=== PATIENT | male | born 1940 | race Caucasian/White ===

== ENCOUNTER 2018-02-25 21:43 | Emergency (ER) | payer MEDICARE ==
--- NOTE | 2018-02-25 22:10 | ERPHSYRPT ---
- History of Present Illness Time Seen by Provider: 02/25/18 22:09 Source: patient, family Exam Limitations: no limitations Physician History: 77 y/o white male presents with not feeling well and feverish at home for 3 weeks. pt has had a cough, had a cat scratch. pt denies flank pain and denies dysuria. pt denies cp, soa and abd pain. he has no n/v/d. pt is on coumadin. 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) Associated Symptoms: cough, headache, No abdominal pain, No chest pain, No confusion, No diaphoresis, No nausea/vomiting, No rash, No rhinorrhea, No shortness of breath, No sore throat, No syncope, No weakness Allergies/Adverse Reactions: sodium phosphate,dibasic [From OsmoPrep] Allergy (Intermediate, Verified 00:35) sodium phosphate,monobasic monohydr [From OsmoPrep] Allergy (Intermediate, Verified 02/26/18 00:35) codeine [Codeine] Adverse Reaction (Severe, Verified 02/26/18 00:35) Vomiting meperidine HCl [From Demerol] Adverse Reaction (Severe, Verified 02/26/18 00:35) Vomiting Home Medications: Zolpidem Tartrate 10 mg [Ambien 10 MG] 10 mg PO HS PRN 12/15/11 [History] Warfarin Sodium [Coumadin] 1 mg PO UD 03/19/12 [History] Hydrocodone Bit/Acetaminophen [[place] 7.5-325 Tablet] 1 each PO Q6HPRN PRN [History] Hx Tetanus, Diphtheria Vaccination/Date Given: Yes Hx Influenza Vaccination/Date Given: Yes (2009) Hx Pneumococcal Vaccination/Date Given: No - Review of Systems Constitutional: Fever, No Chills, No Weakness Eyes: No Symptoms Ears, Nose, & Throat: No Symptoms Respiratory: Cough, No Dyspnea, No Stridor, No Wheezing Cardiac: No Symptoms, No Chest Pain, No Palpitations, No Syncope Abdominal/Gastrointestinal: No No Symptoms, No Abdominal Pain, No Nausea, No Vomiting Genitourinary Symptoms: No Symptoms, No Dysuria, No Frequency, No Hematuria Musculoskeletal: No Symptoms, No Arthralgias, No Back Pain, No Neck Pain, No Injury Skin: No No Symptoms Neurological: Headache, No Dizziness Psychological: No Symptoms Endocrine: No Symptoms Hematologic/Lymphatic: No Symptoms Immunological/Allergic: No Symptoms All Other Systems: Reviewed and Negative - Past Medical History Pertinent Past Medical History: Yes Neurological History: No Pertinent History ENT History: No Pertinent History Cardiac History: No Pertinent History Respiratory History: No Pertinent History Endocrine Medical History: Diabetes Type II Musculoskeletal History: Arthritis GI Medical History: Esophageal Disorder History: No Pertinent History, Kidney Cancer Psycho-Social History: No Pertinent History Male Reproductive Disorders: No Pertinent History Other Medical History: hx blood in stool - Past Surgical History Past Surgical History: Yes Neuro Surgical History: No Pertinent History Cardiac: No Pertinent History Respiratory: No Pertinent History Gastrointestinal: Appendectomy Genitourinary: No Pertinent History Musculoskeletal: No Pertinent History Male Surgical History: No Pertinent History Other Surgical History: t&a - Social History Smoking Status: Former smoker How long have you smoked: 50yrs ago Exposure to second hand smoke: No Drug Use: none Patient Lives Alone: No - Nursing Vital Signs Nursing Vital Signs: Initial Vital Signs Temperature 100.5 F 02/25/18 21:44 Pulse Rate 76 02/25/18 21:44 Respiratory Rate 18 02/25/18 21:44 Blood Pressure 143/70 02/25/18 21:44 O2 Sat by Pulse Oximetry 93 L 02/25/18 21:44 Pain Scale Pain Intensity 10 - Physical Exam General Appearance: no apparent distress, alert, anxiety Eye Exam: PERRL/EOMI, eyes nml inspection ENT Exam: normal ENT inspection, TMs normal, pharynx normal Neck Exam: normal inspection, non-tender, supple, full range of motion, trachea midline, No lymphadenopathy (R) Respiratory Exam: normal breath sounds, lungs clear, No chest non-tender, No no respiratory distress, No no accessory muscle use, No rhonchi, No stridor, No wheezing Cardiovascular/Chest Exam: normal heart sounds, regular rate/rhythm Gastrointestinal/Abdominal Exam: soft, non tender, no distention, no mass, no guarding, no ecchymosis, no organomegaly, normal bowel sounds, No guarding, No rebound, No tenderness Rectal Exam: not done Extremity Exam: non-tender, normal range of motion, normal inspection Neurologic Exam: alert, oriented x 3, 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, 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, normal mood/affect Skin Exam: normal color, warm, dry, other (right above knee old cat scratch) Lymphatic: No adenopathy SpO2 Interpretation: normal - Course Nursing assessment & vital signs reviewed: Yes Ordered Tests: Active Orders 24 hr Category Date Time Status CHEST 1 VIEW (PORTABLE) Stat Exams 02/25/18 22:38 Taken BLOOD CULTURE Stat Lab 02/25/18 22:50 Received CBC W DIFF Stat Lab 02/25/18 22:50 Completed CMP Stat Lab 02/25/18 22:50 Completed Medication Summary Discontinued Medications Generic Name Dose Route Start Last Admin Trade Name Freq PRN Reason Stop Dose Admin Acetaminophen 650 mg 02/26/18 00:41 02/26/18 00:45 Tylenol 325 Mg PO 02/26/18 00:42 650 mg STAT STA Administration Acetaminophen Confirm 02/26/18 00:43 Tylenol 325 Mg Administered 02/26/18 00:44 Dose 650 mg .ROUTE .STK-MED ONE Doxycycline Hyclate 100 mg 02/26/18 00:45 02/26/18 00:49 Vibramycin 100 Mg PO 02/26/18 00:46 100 mg STAT ONE Administration Doxycycline Hyclate Confirm 02/26/18 00:47 Vibramycin 100 Mg Administered 02/26/18 00:48 Dose 100 mg .ROUTE .STK-MED ONE Sodium Chloride 1,000 mls @ 999 mls/hr 02/25/18 22:37 02/25/18 23:00 Sodium Chloride 0.9% 1000 Ml IV 02/25/18 23:37 999 mls/hr .Q1H1M STA Administration Sodium Chloride Confirm 02/25/18 22:49 Sodium Chloride 0.9% 1000 Ml Administered 02/25/18 22:50 Dose 1,000 mls @ ud .ROUTE .STK-MED ONE Lab/Rad Data: Laboratory Result Diagrams 02/25/18 22:50 02/25/18 22:50 Laboratory Results 02/25/18 02/25/18 Range/Units 22:50 22:50 WBC 3.7 L (4.0-10.5) K/mm3 RBC 4.22 (4.1-5.6) M/mm3 Hgb 13.5 (12.5-18.0) gm/dl Hct 40.4 L (42-50) % MCV 95.7 (78-100) fl MCH 32.0 (26-32) pg MCHC 33.4 (32-36) g/dl RDW 13.4 (11.5-14.0) % Plt Count 98 L (150-450) K/mm3 MPV 10.1 H (6-9.5) fl Gran % 47.8 (36.0-66.0) % Eos # (Auto) 0.12 (0-0.5) Absolute Lymphs (auto) 1.36 (1.0-4.6) Absolute Monos (auto) 0.42 (0.0-1.3) Lymphocytes % 36.6 (24.0-44.0) % Monocytes % 11.3 (0.0-12.0) % Eosinophils % 3.2 (0.00-5.0) % Basophils % 1.1 (0.0-0.4) % Absolute Granulocytes 1.78 (1.4-6.9) Basophils # 0.04 (0-0.4) Sodium 139 (137-145) mmol/L Potassium 3.8 (3.5-5.1) mmol/L Chloride 107 (98-107) mmol/L Carbon Dioxide 23 (22-30) mmol/L Anion Gap 13.8 (5-15) MEQ/L BUN 16 (9-20) mg/dL Creatinine 1.04 (0.66-1.25) mg/dL Estimated GFR > 60.0 ML/MIN Glucose 120 H (74-106) mg/dL Calcium 8.7 (8.4-10.2) mg/dL Total Bilirubin 0.40 (0.2-1.3) mg/dL AST 76 H (17-59) U/L ALT 81 H (0-50) U/L Alkaline Phosphatase 143 H (38-126) U/L Serum Total Protein 7.0 (6.3-8.2) g/dL Albumin 4.1 (3.5-5.0) g/dL cxr- no acute process - Progress Progress: unchanged, re-examined Progress Note: 02/26/18 00:55 pt and family stated pt cannot take hydrocodone for cough but he is on it. pt cannot take ibuprofen because of pt on coumadin. will give rx for doxycyline to cover bronchitis and cat scratch site to right leg. pt to take otc robitussin for cough Counseled pt/family regarding: lab results, diagnosis, need for follow-up, rad results - Departure Time of Disposition: 00:57 Departure Disposition: Home Clinical Impression: Fever, Cough, Cat scratch, Leukopenia, Thrombocytopenia Condition: Stable Critical Care Time: No Referrals: EMELI SINGH [Primary Care Provider] - Additional Instructions: keep cat scratch site clean with soap and water. follow up with primary doctor for further evaluation of low white blood cells and low platelet counts. Prescriptions: Doxycycline Hyclate 100 mg [Vibramycin 100 MG] 100 mg PO BID #14 tab
[2018-02-25] MEDS ORDERED: Sodium Chloride 0.9% 1000 ML 1,000 ML ONE (22:49)
[2018-02-25] MEDS: Sodium Chloride 0.9% 1000 ML 1,000 ML IV STA (23:00)
[2018-02-25 23:07] LABS: BASOPHIL % 1.1 % (0.0-0.4); Basophil (Absolute #) 0.04 (0-0.4); Eosinophil % 3.2 % (0.00-5.0); Eosinophil (Absolute #) 0.12 (0-0.5); Granulocyte Absolute (ANC) 1.78 (1.4-6.9); Granulocytes % 47.8 % (36.0-66.0); Hematocrit 40.4 % (42-50); Hemoglobin 13.5 gm/dl (12.5-18.0); Lymphocyte (Absolute #) 1.36 (1.0-4.6); Lymphocytes % 36.6 % (24.0-44.0); Mean Cell Volume 95.7 fl (78-100); Mean Corpuscular Hgb Concent. 33.4 g/dl (32-36); Mean Platelet Volume 10.1 fl (6-9.5); Monocyte (Absolute #) 0.42 (0.0-1.3); Monocytes % 11.3 % (0.0-12.0); Platelet Count 98 K/mm3 (150-450); Red Blood Count 4.22 M/mm3 (4.1-5.6); Red Cell Distribution Width 13.4 % (11.5-14.0); White Blood Count 3.7 K/mm3 (4.0-10.5)
[2018-02-25 23:24] LABS: ALBUMIN 4.1 g/dL (3.5-5.0); ALKALINE PHOSPHATASE 143 U/L (38-126); ANION GAP 13.8 MEQ/L (5-15); BLOOD UREA NITROGEN 16 mg/dL (9-20); CHLORIDE 107 mmol/L (98-107); Calcium 8.7 mg/dL (8.4-10.2); Carbon Dioxide 23 mmol/L (22-30); Creatinine 1 1.04 mg/dL (0.66-1.25); Glucose 120 mg/dL (74-106); Potassium 3.8 mmol/L (3.5-5.1); SGOT/AST 76 U/L (17-59); SGPT/ALT 81 U/L (0-50); SODIUM 139 mmol/L (137-145)
[2018-02-26] MEDS ORDERED: TYLENOL 325 MG ONE (00:43)
[2018-02-26] MEDS: TYLENOL 325 MG PO STA (00:45)
[2018-02-26] MEDS ORDERED: Vibramycin 100 MG ONE (00:47)
[2018-02-26] MEDS: Vibramycin 100 MG PO ONE (00:49)
[2018-02-26] MEDS: Robitussin 100 MG/5 ML PO ONE (01:21)
[2018-02-26 01:30] VITALS: BP 128/61; PULSE 64; O2SAT 93
--- NOTE | 2018-02-26 09:06 | XRAY ---
Indication: Chest pain, cough, and fever. Comparison: July 04, 2017. Portable chest unchanged again demonstrating normal heart and lungs with left base subsegmental atelectasis/scarring. Bony thorax intact with mild degenerative changes. No new/acute findings.
== END 2018-02-26 01:27 | disposition home or self-care (01) ==
LOC: ED 21:43
DX: R50.9 Fever, unspecified (principal); R05 Cough; W55.03XA Scratched by cat, initial encounter; D72.819 Decreased white blood cell count, unspecified; D69.6 Thrombocytopenia, unspecified; J40 Bronchitis, not specified as acute or chronic; R51 Headache; Z79.01 Long term (current) use of anticoagulants; Z79.899 Other long term (current) drug therapy; E11.9 Type 2 diabetes mellitus without complications; M19.90 Unspecified osteoarthritis, unspecified site; Z85.528 Personal history of other malignant neoplasm of kidney
CPT/HCPCS: 36415; 71045; 80053; 85025; 87040; 96360; 99284; A9270-GY

== ENCOUNTER 2018-03-24 11:01 | Emergency (ER) | payer MEDICARE ==
[2018-03-24] MEDS ORDERED: BACIGUENT PACKET (12:46)
[2018-03-24] MEDS ORDERED: XYLOCAINE 1% HCL 20 ML MDV (12:46)
[2018-03-24] MEDS ORDERED: Adacel Vial IM (12:46)
[2018-03-24] MEDS: Adacel Vial IM (12:51)
[2018-03-24] MEDS: XYLOCAINE 1% HCL 20 ML MDV IJ (12:53)
[2018-03-24] MEDS: BACIGUENT PACKET TP (12:53)
== END 2018-03-24 12:54 | disposition home or self-care (01) ==
LOC: ED 11:01
CPT/HCPCS: 90471; 90715; 96372

== ENCOUNTER 2019-09-18 22:42 | Emergency (ER) | payer MEDICARE ==
--- NOTE | 2019-09-18 22:45 | ERPHSYRPT ---
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 He was lifting and moving it on his own when he recalls straining his right lower lateral ribs. Today, the pain was worsening throughout the day. It is very localized. Patient denies anterior chest pain. He denies shortness of breath. Patient states that he using concerned about either a broken rib or possibly pneumonia. He states the pain is worse with a cough or deep breathing. He has no abdominal pain. Patient states that he has had Percocet in the past without any problems. Timing/Duration: today, worse Quality: sharpness, stabbing Abdominal Pain Onset Location: other (Right lateral lower ribs) Pain Radiation: no radiation Severity of Pain-Max: moderate Severity of Pain-Current: moderate Modifying Factors: Improves With: coughing, movement (Worsens), rest (Improves) Associated Symptoms: denies symptoms Previous symptoms: no prior history Allergies/Adverse Reactions: doxycycline Allergy (Intermediate, Verified 09/18/19 23:05) sodium phosphate,dibasic [From OsmoPrep] Allergy (Intermediate, Verified 23:05) sodium phosphate,monobasic monohydr [From OsmoPrep] Allergy (Intermediate, Verified 09/18/19 23:05) codeine [Codeine] Adverse Reaction (Severe, Verified 09/18/19 23:05) Vomiting meperidine HCl [From Demerol] Adverse Reaction (Severe, Verified 09/18/19 23:05) Vomiting Home Medications: Glipizide [Glipizide ER] 7.5 mg PO DAILY 03/24/18 [History] Tamsulosin HCl 0.4 mg PO DAILY 03/24/18 [History] Cyanocobalamin (Vitamin B-12) [Vitamin B-12] 1,000 mcg PO DAILY 09/18/19 [ History] Ezetimibe 10 mg [Zetia 10 MG] 10 mg PO HS 09/18/19 [History] Famotidine 20 mg [Pepcid 20 MG] 20 mg PO BID 09/18/19 [History] Losartan Potassium [Cozaar] 25 mg PO DAILY 09/18/19 [History] Hx Tetanus, Diphtheria Vaccination/Date Given: No (unsure) Hx Influenza Vaccination/Date Given: Yes (2009) Hx Pneumococcal Vaccination/Date Given: No Travel Risk - International Travel Have you traveled outside of the country in past 3 weeks: No Have you or anyone close to you been diagnosed with or: No Do your reside in a community with a known COVID-19 case?: Yes If Yes where:: [facility] - Coronavirus Screening Has patient experienced Coronavirus symptoms: No - Review of Systems Constitutional: No Symptoms Eyes: No Symptoms Ears, Nose, & Throat: No Symptoms Respiratory: No Symptoms Cardiac: No Symptoms Abdominal/Gastrointestinal: No Symptoms Genitourinary Symptoms: No Symptoms Musculoskeletal: Other (Right posterior lateral rib pain right rib margin pain) Skin: No Symptoms Neurological: No Symptoms Psychological: No Symptoms Endocrine: No Symptoms Hematologic/Lymphatic: No Symptoms Immunological/Allergic: No Symptoms All Other Systems: Reviewed and Negative - Past Medical History Pertinent Past Medical History: Yes Neurological History: No Pertinent History ENT History: No Pertinent History Cardiac History: No Pertinent History Respiratory History: No Pertinent History Endocrine Medical History: Diabetes Type II Musculoskeletal History: Arthritis GI Medical History: Esophageal Disorder History: No Pertinent History, Kidney Cancer Psycho-Social History: No Pertinent History Male Reproductive Disorders: No Pertinent History Other Medical History: hx blood in stool - Past Surgical History Past Surgical History: Yes Neuro Surgical History: No Pertinent History Cardiac: No Pertinent History Respiratory: No Pertinent History Gastrointestinal: Appendectomy Genitourinary: No Pertinent History Musculoskeletal: No Pertinent History Male Surgical History: No Pertinent History Other Surgical History: t&a - Social History Smoking Status: Former smoker How long have you smoked: 50yrs ago Exposure to second hand smoke: No Drug Use: none Patient Lives Alone: No - Nursing Vital Signs Nursing Vital Signs: Initial Vital Signs Temperature 98.2 F 09/18/19 22:53 Pain Scale Pain Intensity 3 - Physical Exam General Appearance: no apparent distress, alert, anxiety Eye Exam: PERRL/EOMI, eyes nml inspection Ears, Nose, Throat Exam: normal ENT inspection, moist mucous membranes Neck Exam: normal inspection, non-tender, supple Respiratory Exam: normal breath sounds, chest tenderness (Right posterior lateral and lower anterior rib margin pain worse with deep breath and palpation. 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 Skin Exam: normal color Lymphatic Exam: No adenopathy SpO2 Interpretation: normal O2 Delivery: Room Air - Course Nursing assessment & vital signs reviewed: Yes Ordered Tests: Active Orders 24 hr Category Date Time Status CHEST 2 VIEWS (PA AND LAT) Stat Exams 09/18/19 23:19 Taken Medication Summary Discontinued Medications Generic Name Dose Route Start Last Admin Trade Name Freq PRN Reason Stop Dose Admin Cyclobenzaprine HCl 10 mg 09/19/19 00:01 Cyclobenzaprine 10 Mg PO 09/19/19 00:02 STAT ONE Oxycodone/Acetaminophen 1 tab 09/19/19 00:00 Percocet Tablet 5/325mg PO 09/19/19 00:01 STAT STA Prednisone 20 mg 09/19/19 00:00 Deltasone 20 Mg PO 09/19/19 00:01 STAT ONE - Progress Progress: improved Progress Note: 09/19/19 00:14 We did contact the patient's daughter and she states that she does not recall whether or not this patient has had Percocet in the past. His reaction to codeine in the past was nausea and vomiting. We will provide him with Zofran ODT tonight as well as a prescription of Zofran to be used with his Percocet pain medicine. Chest x-ray was read by radiology. There is no evidence of any rib fractures. There is no pneumonia is present. On the lateral view there was evidence of a very small pleural effusion. There is mild bibasilar atelectasis. Again, no mention of pneumonia on the radiology report. I do not see evidence of an infiltrate on the x-ray of his chest Counseled pt/family regarding: diagnosis, need for follow-up, rad results - Departure Departure Disposition: Home Clinical Impression: Rib pain on right side Condition: Stable Critical Care Time: No Referrals: EMELI SINGH [Primary Care Provider] - Prescriptions: Ondansetron ODT 4 MG [Zofran Odt 4 mg] 4 mg PO Q6H PRN PRN #10 tab.rapdis PRN Reason: Vomiting Oxycodone HCl/Acetaminophen [Percocet 5-325 mg Tablet] 1 each PO Q8H PRN PRN #6 tablet MDD 3 PRN Reason: Pain Cyclobenzaprine HCl 10 mg [Cyclobenzaprine 10 MG] 10 mg PO TID #10 tablet Prednisone 10 mg [Deltasone 10 mg] 10 mg PO TID #12 tablet
[2019-09-19] MEDS ORDERED: PERCOCET TABLET 5/325MG PO STA
[2019-09-19] MEDS ORDERED: DELTASONE 20 MG PO ONE
[2019-09-19] MEDS ORDERED: Cyclobenzaprine 10 MG PO ONE (00:01)
[2019-09-19] MEDS ORDERED: Cyclobenzaprine 10 MG ONE (00:16)
[2019-09-19] MEDS ORDERED: PERCOCET TABLET 5/325MG ONE (00:16)
[2019-09-19] MEDS ORDERED: ZOFRAN ODT 4 MG ONE (00:16)
[2019-09-19] MEDS ORDERED: DELTASONE 20 MG ONE (00:16)
[2019-09-19] MEDS ORDERED: ZOFRAN ODT 4 MG PO ONE (00:20)
[2019-09-19 00:39] VITALS: BP 140/80; PULSE 66; O2SAT 96
--- NOTE | 2019-09-19 08:27 | XRAY ---
Indication: Right rib pain. No known injury. Comparison: February 25, 2018. PA/lateral chest demonstrates new minimal right base infiltrate/atelectasis and tiny effusion with stable left base fibrosis/scarring. Remaining heart and lungs unremarkable. Bony thorax intact again with mild osteopenia and degenerative changes. Comment: Preliminary interpretation was made by [facility]. No critical discrepancy.
== END 2019-09-19 00:47 | disposition home or self-care (01) ==
LOC: ED 22:42
DX: R07.81 Pleurodynia (principal); Z79.899 Other long term (current) drug therapy; X50.0XXA Overexertion from strenuous movement or load, initial encounter; Y93.9 Activity, unspecified; Y92.89 Other specified places as the place of occurrence of the external cause
CPT/HCPCS: 71046; 99284; Q0162; A9270-GY

== ENCOUNTER 2023-11-25 22:02 | Emergency (ER) | payer MEDICARE ==
[2023-11-25 22:25] VITALS: RESP 18; TEMP 97.6
--- NOTE | 2023-11-25 22:34 | ERPHSYRPT ---
- History of Present Illness Time Seen by Provider: 11/25/23 22:33 Source: patient Exam Limitations: no limitations Patient Subjective Stated Complaint: pt states he has had a headache and intermittent profuse sweating since . states he has had no energy and some shortness of breath with exertion Triage Nursing Assessment: pt alert and oriented, answers questions approp. pt ambulates into room with slow limping gait noted. respirations nonlabored with lungs cta bilat. skin warm and dry at this time. heart rate 62 sinus rhythm with pvc's on monitor Physician History: The patient presents with a chief complaint of excessive sweating, particularly at night, to the point of soaking his pillow and clothes. This has been accompanied by a persistent headache over the past three days. The patient denies any associated body aches, chills, or fever. He also denies any new muscle aches, but does have a history of chronic back and hip pain. The patient's oxygen saturation has reportedly dropped from the 90s to the high 80s, which has caused some concern. He reports feeling tired and short of breath, particularly after walking short distances. However, he denies any chest pain. The patient has been less active over the past two days due to these symptoms. The patient occasionally experiences a cough, but denies any congestion. He has not been around anyone who has been sick recently. He also denies any gastrointestinal symptoms such as nausea, vomiting, or diarrhea. The patient denies any swelling or abdominal pain. The primary concerns remain the severe sweating and persistent headache. Timing/Duration: day(s) (3) Severity: moderate Modifying Factors: Worsens With: movement Associated Symptoms: shortness of breath, diaphoresis, cough, chills, headaches, loss of appetite, malaise, weakness, No nausea, No vomiting, No abdominal pain, No heartburn, No fever Allergies/Adverse Reactions: bisacodyl [From Dulcolax (bisacodyl)] Allergy (Intermediate, Verified 11/25/23 2 2:38) Hives doxycycline Allergy (Intermediate, Verified 11/25/23 22:26) sodium phosphate,dibasic [From OsmoPrep] Allergy (Intermediate, Verified 11/25/23 22:26) Hives sodium phosphate,monobasic monohydr [From OsmoPrep] Allergy (Intermediate, Verified 11/25/23 22:26) codeine [Codeine] Adverse Reaction (Severe, Verified 11/25/23 22:26) Vomiting meperidine HCl [From Demerol] Adverse Reaction (Severe, Verified 11/25/23 22:26) Vomiting Home Medications: Tamsulosin HCl 0.4 mg PO HS 03/24/18 [History] glipiZIDE [Glipizide ER] 10 mg PO DAILY 03/24/18 [History] Cyanocobalamin (Vitamin B-12) [Vitamin B-12] 1,000 mcg PO DAILY 09/18/19 [History] Ezetimibe 10 mg [Zetia 10 MG] 10 mg PO HS 09/18/19 [History] Losartan Potassium [Cozaar] 50 mg PO DAILY 09/18/19 [History] Losartan Potassium 50 mg [Cozaar 50 MG] 25 mg PO HS 11/25/23 [History] Omeprazole 40 mg PO DAILY 11/25/23 [History] Hx Tetanus, Diphtheria Vaccination/Date Given: No (unsure) Hx Influenza Vaccination/Date Given: No Hx Pneumococcal Vaccination/Date Given: Yes Immunizations Up to Date: No Travel Risk - International Travel Have you traveled outside of the country in past 3 weeks: No - Emerging Infectious Disease Are you exhibiting symptoms associated with any current EIDs: No - Review of Systems All Other Systems: Reviewed and Negative - Past Medical History Pertinent Past Medical History: Yes Neurological History: No Pertinent History ENT History: No Pertinent History Cardiac History: Hypertension Respiratory History: No Pertinent History Endocrine Medical History: Diabetes Type II Musculoskeletal History: Osteoarthritis GI Medical History: Esophageal Disorder History: No Pertinent History Psycho-Social History: No Pertinent History Male Reproductive Disorders: Prostate Problems Other Medical History: hx blood in stool - Past Surgical History Past Surgical History: Yes Neuro Surgical History: No Pertinent History Cardiac: No Pertinent History Respiratory: No Pertinent History Gastrointestinal: Appendectomy, Cholecystectomy Genitourinary: No Pertinent History Musculoskeletal: No Pertinent History Male Surgical History: No Pertinent History Other Surgical History: t&a - Social History Smoking Status: Former smoker How long have you smoked: 50yrs ago Exposure to second hand smoke: No Drug Use: none Patient Lives Alone: No - Social Determinants of Health Will the patient participate in the screening: Declined to provide - Nursing Vital Signs Nursing Vital Signs: Initial Vital Signs Temperature 97.6 F 11/25/23 22:06 Pulse Rate 72 11/25/23 22:06 Respiratory Rate 18 11/25/23 22:06 Blood Pressure 136/66 11/25/23 22:06 O2 Sat by Pulse Oximetry 94 L 11/25/23 22:06 Pain Scale Pain Intensity 0 - Physical Exam General Appearance: no apparent distress Eye Exam: PERRL/EOMI, eyes nml inspection Ears, Nose, Throat Exam: normal ENT inspection, TMs normal, pharynx normal Neck Exam: normal inspection, non-tender, supple, full range of motion Respiratory Exam: airway intact, diminished breath sounds, No respiratory distress Cardiovascular Exam: regular rate/rhythm, normal heart sounds, capillary refill <2 sec, No edema Gastrointestinal/Abdomen Exam: soft, No tenderness, No distention, No mass, No guarding, No rebound Extremity Exam: normal inspection, No swelling, No tenderness Neurologic Exam: alert, oriented x 3, cooperative Skin Exam: normal color, warm, dry SpO2 Interpretation: normal SpO2: 94 O2 Delivery: Room Air - Course Nursing assessment & vital signs reviewed: Yes EKG Interpreted by Me: RATE (62), Sinus Rhythm, NORMAL AXIS, NORMAL INTERVALS, NORMAL QRS, Other (LVH with repolarization abnormality) - Radiology Exams Chest X-ray Interpretation: Interpreted by me, Pneumonia Ordered Tests: Active Orders 24 hr Category Date Time Status Lactic Acid Stat Lab 11/25/23 22:45 Completed UA W/RFX UR CULTURE Stat Lab 11/26/23 00:51 Completed Medication Summary Discontinued Medications Generic Name Dose Route Start Last Admin Trade Name Reneq PRN Reason Stop Dose Admin Sodium Chloride 1,000 mls @ 999 mls/hr 11/25/23 22:35 11/26/23 02:18 Sodium Chloride 0.9% 1000 Ml IV 11/25/23 23:35 Infused .Q1H1M STA Infusion Sodium Chloride Confirm 11/25/23 22:47 Sodium Chloride 0.9% 1000 Ml Administered 11/25/23 22:48 Dose 1,000 mls @ ud .ROUTE .STK-MED ONE Ceftriaxone Sodium 1 gm in 100 mls @ 200 mls/hr 11/25/23 23:32 11/26/23 00:30 Rocephin 1 Gm / 100 Ml Nacl IV 11/26/23 00:01 Infused STAT ONE Infusion Azithromycin 500 mg in 250 mls @ 250 mls/hr 11/25/23 23:33 11/26/23 00:28 Zithromax 500 Mg/ 250 Ml Nacl Premix IV 11/26/23 00:32 250 mls/hr STAT ONE Administration Ceftriaxone Sodium Confirm 11/25/23 23:48 Rocephin 1 Gm / 100 Ml Nacl Administered 11/25/23 23:49 Dose 1 gm in 100 mls @ ud IV .STK-MED ONE Azithromycin Confirm 11/26/23 00:23 Zithromax 500 Mg/ 250 Ml Nacl Premix Administered 11/26/23 00:24 Dose 500 mg in 250 mls @ ud IV .STK-MED ONE Ondansetron HCl 8 mg 11/26/23 02:25 11/26/23 02:29 Zofran 4 Mg/Udtablet Orally Disintegrating PO 11/26/23 02:26 8 mg STAT ONE Administration Ondansetron HCl Confirm 11/26/23 02:29 Zofran 4 Mg/Udtablet Orally Disintegrating Administered 11/26/23 02:30 Dose 8 mg .ROUTE .STK-MED ONE Lab/Rad Data: Laboratory Result Diagrams 11/25/23 22:40 11/25/23 22:40 Laboratory Results 11/26/23 11/25/23 11/25/23 Range/Units 00:51 23:07 22:45 WBC (4.23-9.07) x10^3/uL RBC (4.63-6.08) x10^6/uL Hgb (13.7-17.5) g/dL Hct (40.1-51.0) % MCV (79.0-92.2) fL MCH (25.7-32.2) pg MCHC (32.3-36.5) g/dL RDW (11.6-14.4) % Plt Count (163-337) x10^3/uL MPV (9.4-12.4) fL Gran % (34.0-67.9) % Immature Gran % (Auto) (0.001-0.429) % Nucleat RBC Rel Count (0.00-0.2) % Eos # (Auto) (0.04-0.54) x10^3/uL Immature Gran # (Auto) (0.001-0.031) x10^3u/L Absolute Lymphs (auto) (1.32-3.57) x10^3/uL Absolute Monos (auto) (0.30-0.82) x10^3/uL Absolute Nucleated RBC (0.00-0.012) x10^3u/L Lymphocytes % (21.8-53.1) % Monocytes % (5.3-12.2) % Eosinophils % (0.8-7.0) % Basophils % (0.2-1.2) % Absolute Granulocytes (1.78-5.38) x10^3/uL Basophils # (0.01-0.08) x10^3/uL Sodium (135-145) mmol/L Potassium (3.5-5.1) mmol/L Chloride (98-107) mmol/L Carbon Dioxide (22-30) mmol/L Anion Gap (5-15) MEQ/L BUN (9-20) mg/dL Creatinine (0.66-1.25) mg/dL Estimated GFR ML/MIN Glucose (74-106) mg/dL POC Glucometer (74 to 106) mg/dL Lactic Acid 0.8 (0.4-2.0) Calcium (8.4-10.2) mg/dL Magnesium (1.6-2.3) mg/dL Total Bilirubin (0.2-1.3) mg/dL AST (17-59) U/L ALT (0-50) U/L Alkaline Phosphatase (38-126) U/L Troponin I (0.000-0.033) ng/mL NT-Pro-B Natriuret Pep (<300) pg/mL Serum Total Protein (6.3-8.2) g/dL Albumin (3.5-5.0) g/dL TSH 3rd Generation (0.470-4.680) mIU/L Urine Color Yellow (Yellow) Urine Appearance Clear (Clear) Urine pH 6.0 (4.6-8.0) Ur Specific [place] 1.010 (1.005-1.030) Urine Protein Negative (Negative) Urine Glucose (UA) Negative (Negative) mg/dL Urine Ketones Negative (Negative) Urine Blood Negative (Negative) Urine Nitrite Negative (Negative) Urine Bilirubin Negative (Negative) Urine Urobilinogen 1.0 A (0.2) mg/dL Ur Leukocyte Esterase Negative (Negative) U Hyaline Cast (Auto) NONE SEEN (0-2) /LPF Urine Microscopic RBC 0-2 (0-5) /HPF Urine Microscopic WBC 0-2 (0-5) /HPF Ur Epithelial Cells None Seen (None Seen) /HPF Urine Bacteria None Seen (None Seen) /HPF Urine Culture Reflexed NO (NO) Influenza Type A Ag NEGATIVE (NEGATIVE) Influenza Type B Ag NEGATIVE (NEGATIVE) RSV (PCR) NEGATIVE (NEGATIVE) SARS-CoV-2 (PCR) NEGATIVE (NEGATIVE) 11/25/23 11/25/23 11/25/23 Range/Units 22:40 22:40 22:40 WBC (4.23-9.07) x10^3/uL RBC (4.63-6.08) x10^6/uL Hgb (13.7-17.5) g/dL Hct (40.1-51.0) % MCV (79.0-92.2) fL MCH (25.7-32.2) pg MCHC (32.3-36.5) g/dL RDW (11.6-14.4) % Plt Count (163-337) x10^3/uL MPV (9.4-12.4) fL Gran % (34.0-67.9) % Immature Gran % (Auto) (0.001-0.429) % Nucleat RBC Rel Count (0.00-0.2) % Eos # (Auto) (0.04-0.54) x10^3/uL Immature Gran # (Auto) (0.001-0.031) x10^3u/L Absolute Lymphs (auto) (1.32-3.57) x10^3/uL Absolute Monos (auto) (0.30-0.82) x10^3/uL Absolute Nucleated RBC (0.00-0.012) x10^3u/L Lymphocytes % (21.8-53.1) % Monocytes % (5.3-12.2) % Eosinophils % (0.8-7.0) % Basophils % (0.2-1.2) % Absolute Granulocytes (1.78-5.38) x10^3/uL Basophils # (0.01-0.08) x10^3/uL Sodium 137 (135-145) mmol/L Potassium 3.2 L (3.5-5.1) mmol/L Chloride 104 (98-107) mmol/L Carbon Dioxide 25 (22-30) mmol/L Anion Gap 10.8 (5-15) MEQ/L BUN 13 (9-20) mg/dL Creatinine 1.35 H (0.66-1.25) mg/dL Estimated GFR 52.4 ML/MIN Glucose 176 H (74-106) mg/dL POC Glucometer (74 to 106) mg/dL Lactic Acid (0.4-2.0) Calcium 8.2 L (8.4-10.2) mg/dL Magnesium 1.8 (1.6-2.3) mg/dL Total Bilirubin 0.40 (0.2-1.3) mg/dL AST 25 (17-59) U/L ALT 29 (0-50) U/L Alkaline Phosphatase 89 (38-126) U/L Troponin I 0.013 (0.000-0.033) ng/mL NT-Pro-B Natriuret Pep 251 (<300) pg/mL Serum Total Protein 6.3 (6.3-8.2) g/dL Albumin 3.5 (3.5-5.0) g/dL TSH 3rd Generation 1.946 (0.470-4.680) mIU/L Urine Color (Yellow) Urine Appearance (Clear) Urine pH (4.6-8.0) Ur Specific [place] (1.005-1.030) Urine Protein (Negative) Urine Glucose (UA) (Negative) mg/dL Urine Ketones (Negative) Urine Blood (Negative) Urine Nitrite (Negative) Urine Bilirubin (Negative) Urine Urobilinogen (0.2) mg/dL Ur Leukocyte Esterase (Negative) U Hyaline Cast (Auto) (0-2) /LPF Urine Microscopic RBC (0-5) /HPF Urine Microscopic WBC (0-5) /HPF Ur Epithelial Cells (None Seen) /HPF Urine Bacteria (None Seen) /HPF Urine Culture Reflexed (NO) Influenza Type A Ag (NEGATIVE) Influenza Type B Ag (NEGATIVE) RSV (PCR) (NEGATIVE) SARS-CoV-2 (PCR) (NEGATIVE) 11/25/23 11/25/23 Range/Units 22:40 22:17 WBC 8.2 (4.23-9.07) x10^3/uL RBC 3.74 L (4.63-6.08) x10^6/uL Hgb 12.4 L (13.7-17.5) g/dL Hct 36.0 L (40.1-51.0) % MCV 96.3 H (79.0-92.2) fL MCH 33.2 H (25.7-32.2) pg MCHC 34.4 (32.3-36.5) g/dL RDW 11.6 (11.6-14.4) % Plt Count 173 (163-337) x10^3/uL MPV 10.4 (9.4-12.4) fL Gran % 75.4 H (34.0-67.9) % Immature Gran % (Auto) 0.2 (0.001-0.429) % Nucleat RBC Rel Count 0.0 (0.00-0.2) % Eos # (Auto) 0.03 L (0.04-0.54) x10^3/uL Immature Gran # (Auto) 0.02 (0.001-0.031) x10^3u/L Absolute Lymphs (auto) 1.16 L (1.32-3.57) x10^3/uL Absolute Monos (auto) 0.77 (0.30-0.82) x10^3/uL Absolute Nucleated RBC 0.00 (0.00-0.012) x10^3u/L Lymphocytes % 14.2 L (21.8-53.1) % Monocytes % 9.4 (5.3-12.2) % Eosinophils % 0.4 L (0.8-7.0) % Basophils % 0.4 (0.2-1.2) % Absolute Granulocytes 6.18 H (1.78-5.38) x10^3/uL Basophils # 0.03 (0.01-0.08) x10^3/uL Sodium (135-145) mmol/L Potassium (3.5-5.1) mmol/L Chloride (98-107) mmol/L Carbon Dioxide (22-30) mmol/L Anion Gap (5-15) MEQ/L BUN (9-20) mg/dL Creatinine (0.66-1.25) mg/dL Estimated GFR ML/MIN Glucose (74-106) mg/dL POC Glucometer 176 H (74 to 106) mg/dL Lactic Acid (0.4-2.0) Calcium (8.4-10.2) mg/dL Magnesium (1.6-2.3) mg/dL Total Bilirubin (0.2-1.3) mg/dL AST (17-59) U/L ALT (0-50) U/L Alkaline Phosphatase (38-126) U/L Troponin I (0.000-0.033) ng/mL NT-Pro-B Natriuret Pep (<300) pg/mL Serum Total Protein (6.3-8.2) g/dL Albumin (3.5-5.0) g/dL TSH 3rd Generation (0.470-4.680) mIU/L Urine Color (Yellow) Urine Appearance (Clear) Urine pH (4.6-8.0) Ur Specific [place] (1.005-1.030) Urine Protein (Negative) Urine Glucose (UA) (Negative) mg/dL Urine Ketones (Negative) Urine Blood (Negative) Urine Nitrite (Negative) Urine Bilirubin (Negative) Urine Urobilinogen (0.2) mg/dL Ur Leukocyte Esterase (Negative) U Hyaline Cast (Auto) (0-2) /LPF Urine Microscopic RBC (0-5) /HPF Urine Microscopic WBC (0-5) /HPF Ur Epithelial Cells (None Seen) /HPF Urine Bacteria (None Seen) /HPF Urine Culture Reflexed (NO) Influenza Type A Ag (NEGATIVE) Influenza Type B Ag (NEGATIVE) RSV (PCR) (NEGATIVE) SARS-CoV-2 (PCR) (NEGATIVE) - Progress Progress: improved Progress Note: Patient found to have bilateral PNA with more involvement on the left. COVID, Flu and RSV neg. Patient give Rocephin and Azithro in the ED. Reports impr ovement with abx, IVF and steroids today. Will dc home with Cefdinir, Azithro and a prednisone burst. As patient leaving he did have 1 episode of emesis so zofran was given a prescribed for as need home use. Counseled pt/family regarding: lab results, diagnosis, need for follow-up, rad results Medical Desision Making - Diagnostic Testing Diagnostic test were ordered, analyzed, and reviewed by me: Yes Radiological Interpretation: Interpreted by me - Risk of complications The pt has a mod risk of morbidity or mortality based on: Need for prescription drug management - Departure Departure Disposition: Home Clinical Impression: Pneumonia, Dyspnea on exertion, Diaphoresis, SUN (acute kidney injury), Dehydration, Hyperglycemia Condition: Good Critical Care Time: No Referrals: CHRISTINE KABA MD [Primary Care Provider] - Follow up/PCP as directed Instructions: Pneumonia, Adult (DC) Prescriptions: Azithromycin 250 mg PO DAILY 4 Days #4 tablet Cefdinir 300 mg PO BID 7 Days #14 cap predniSONE [Prednisone] 50 mg PO DAILY 4 Days #4 tab ondansetron HCL [Zofran] 8 mg PO TID PRN 5 Days #15 tablet PRN Reason: Nausea/Vomiting
[2023-11-25 22:44] LABS: Absolute Neutrophil Ct (ANC) 6.18 x10^3/uL (1.78-5.38); BASOPHIL % 0.4 % (0.2-1.2); Basophil (Absolute #) 0.03 x10^3/uL (0.01-0.08); Eosinophil % 0.4 % (0.8-7.0); Eosinophil (Absolute #) 0.03 x10^3/uL (0.04-0.54); Hemoglobin 12.4 g/dL (13.7-17.5); IMMATURE GRAN # 0.02 x10^3u/L (0.001-0.031); IMMATURE GRAN % 0.2 % (0.001-0.429); Lymphocyte (Absolute #) 1.16 x10^3/uL (1.32-3.57); Lymphocytes % 14.2 % (21.8-53.1); Mean Cell Volume 96.3 fL (79.0-92.2); Mean Corpuscular Hemoglobin 33.2 pg (25.7-32.2); Mean Corpuscular Hgb Concent. 34.4 g/dL (32.3-36.5); Mean Platelet Volume 10.4 fL (9.4-12.4); Monocyte (Absolute #) 0.77 x10^3/uL (0.30-0.82); Monocytes % 9.4 % (5.3-12.2); Neutrophil % 75.4 % (34.0-67.9); Platelet Count 173 x10^3/uL (163-337); Red Blood Count 3.74 x10^6/uL (4.63-6.08); Red Cell Distribution Width 11.6 % (11.6-14.4); White Blood Count 8.2 x10^3/uL (4.23-9.07)
[2023-11-25] MEDS ORDERED: Sodium Chloride 0.9% 1000 ML 1,000 ML ONE (22:47)
[2023-11-25] MEDS: Sodium Chloride 0.9% 1000 ML 1,000 ML IV STA (22:48)
[2023-11-25 23:08] LABS: ALBUMIN 3.5 g/dL (3.5-5.0); ANION GAP 10.8 MEQ/L (5-15); BILIRUBIN,TOTAL 0.4 mg/dL (0.2-1.3); Calcium 8.2 mg/dL (8.4-10.2); Creatinine 1 1.35 mg/dL (0.66-1.25); EST GLOMERULAR FILTRATION RATE 52.4 ML/MIN; MAGNESIUM 1.8 mg/dL (1.6-2.3); Potassium 3.2 mmol/L (3.5-5.1); Total Protein 6.3 g/dL (6.3-8.2)
[2023-11-25 23:19] LABS: TROPONIN 0.013 ng/mL (0.000-0.033)
[2023-11-25 23:46] LABS: INFLUENZA A NEGATIVE (NEGATIVE); INFLUENZA B NEGATIVE (NEGATIVE); RESPIRATORY SYNCTIAL VIRUS NEGATIVE (NEGATIVE); SARS-CoV-2 Xpert Express NEGATIVE (NEGATIVE)
[2023-11-25] MEDS ORDERED: ROCEPHIN 1 GM / 100 ML NaCl 1 GM/100 ML IVPB IV ONE (23:48)
[2023-11-25] MEDS: ROCEPHIN 1 GM / 100 ML NaCl 1 GM/100 ML IVPB IV ONE (23:49)
[2023-11-26] MEDS ORDERED: Zithromax 500 MG/ 250 ML NaCl Premix 500 MG/250 ML IVPB IV ONE (00:23)
[2023-11-26] MEDS: Zithromax 500 MG/ 250 ML NaCl Premix 500 MG/250 ML IVPB IV ONE (00:28)
[2023-11-26 00:59] LABS: Appearance Clear (Clear); Bacteria None Seen /HPF (None Seen); Bilirubin Negative (Negative); Blood Negative (Negative); Epithelial Cells None Seen /HPF (None Seen); Glucose, Urine Negative (Negative); Hyaline Casts NONE SEEN /LPF (0-2); Ketones Negative (Negative); Leukocyte Esterase Negative (Negative); Nitrite Negative (Negative); Protein,Urine Dip Negative (Negative); RBC 0-2 /HPF (0-5); WBC 0-2 /HPF (0-5)
[2023-11-26 01:19] LABS: ADD URINE CULTURE? NO (NO)
[2023-11-26 02:17] VITALS: BP 146/70; PULSE 65
[2023-11-26 02:28] VITALS: O2SAT 94
[2023-11-26] MEDS: ZOFRAN ODT 4 MG PO ONE (02:29)
[2023-11-26] MEDS ORDERED: ZOFRAN ODT 4 MG ONE (02:29)
--- NOTE | 2023-11-26 07:27 | XRAY ---
Indication: Short of breath. Comparison: January 22, 2021 Portable apical lordotic chest demonstrates new patchy left lung airspace disease without consolidation/large effusion. Remaining heart and right lung unremarkable. Bony thorax intact again with osteopenia and mild degenerative changes.
== END 2023-11-26 02:39 | disposition home or self-care (01) ==
LOC: ED 22:02
DX: J18.9 Pneumonia, unspecified organism (principal); R06.09 Other forms of dyspnea; R61 Generalized hyperhidrosis; N17.9 Acute kidney failure, unspecified; E86.0 Dehydration; E11.65 Type 2 diabetes mellitus with hyperglycemia; R51.9 Headache, unspecified; I10 Essential (primary) hypertension; Z79.84 Long term (current) use of oral hypoglycemic drugs; Z79.899 Other long term (current) drug therapy
CPT/HCPCS: 0241U; 36000; 36415; 71045; 80053; 81001; 82947; 83605; 83735; 83880; 84443; 84484; 85025; 93005; 93041; 94760; 96360; 99284; J0456; J0696; Q0162

== ENCOUNTER 2024-02-07 07:41 | Day surgery (SDC) | payer MEDICARE ==
[2012-03-20 12:35] VITALS: BP 138/78
[2024-02-07] MEDS ORDERED: BUPIVACAINE 0.5% VIAL IJ ONE (07:42)
[2024-02-07] MEDS ORDERED: Depo-Medrol 40 MG/ML IM ONE (07:42)
[2024-02-07] MEDS ORDERED: DIPRIVAN 200 MG/20 ML IV ONE (09:26)
[2024-02-07] MEDS ORDERED: Lactated Ringers 1,000 ML IV ONE (09:52)
--- NOTE | 2024-02-07 10:33 | XRAY ---
Indication: Bilateral SI joint injection. Intraoperative fluoroscopy was provided for 41 seconds. 2 digital spot images submitted for interpretation demonstrates posterior needle tip projecting over the left and right SI joint. Small amount of contrast injected for needle placement. Correlate with intraoperative findings/report.
--- NOTE | 2024-02-07 11:33 | XRAY ---
41 seconds of fluoroscopy was used in surgery for a bilateral sacroiliac joint injection.
== END 2024-02-07 10:00 | disposition home or self-care (01) ==
LOC: SDC-PAIN 07:41
PROVIDERS: ATTEND Psychiatry & Neurology Pain Medicine
DX: M46.1 Sacroiliitis, not elsewhere classified (principal); E11.9 Type 2 diabetes mellitus without complications
CPT/HCPCS: 27096; 72202; 77002; 82947; 93005; 99100; J2704; Q9966; G0260

== ENCOUNTER 2024-03-20 07:28 | Day surgery (SDC) | payer MEDICARE ==
[2012-03-20 12:35] VITALS: BP 138/78
[2024-03-20] MEDS ORDERED: Xylocaine-Mpf 2% 5 Ml Vial IJ ONE (07:29)
[2024-03-20] MEDS ORDERED: DIPRIVAN 200 MG/20 ML IV ONE (08:36)
--- NOTE | 2024-03-20 10:25 | XRAY ---
Indication: Bilateral L4-S1 MBB. Intraoperative fluoroscopy provided for 13 seconds. Single digital spot image submitted for interpretation demonstrates posterior needle tips projecting over the expected left and right L4-S1 nerve roots. Correlate with intraoperative findings/report.
--- NOTE | 2024-03-20 11:31 | XRAY ---
13 seconds of fluoroscopy was used in surgery for a bilateral L4-S1 MBB.
== END 2024-03-20 09:06 | disposition home or self-care (01) ==
LOC: SDC-PAIN 07:28
PROVIDERS: ATTEND Psychiatry & Neurology Pain Medicine
DX: M47.816 Spondylosis without myelopathy or radiculopathy, lumbar region (principal); E11.9 Type 2 diabetes mellitus without complications
CPT/HCPCS: 64493; 64494; 72020; 77002; 82947; J2704

== ENCOUNTER 2024-04-24 07:16 | Day surgery (SDC) | payer MEDICARE ==
[2012-03-20 12:35] VITALS: BP 138/78
[2024-04-24] MEDS ORDERED: BUPIVACAINE 0.5% VIAL IJ ONE ×2 (07:17)
[2024-04-24] MEDS ORDERED: DIPRIVAN 200 MG/20 ML IV ONE (08:18)
--- NOTE | 2024-04-24 10:11 | XRAY ---
Indication: Right hip and greater trochanter bursa injection.. Intraoperative fluoroscopy provided for 17 seconds. 2 digital spot image submitted for interpretation demonstrates needle tip projecting lateral to right femur neck. Second needle tip lateral to right greater trochanter. Small amount of contrast injected for both needle tip placement. Correlate with intraoperative findings/report.
--- NOTE | 2024-04-24 11:01 | XRAY ---
17 seconds of fluoroscopy was used in surgery for a right intra-articular hip and greater trochanteric bursa injection.
== END 2024-04-24 09:10 | disposition home or self-care (01) ==
LOC: SDC-PAIN 07:16
PROVIDERS: ATTEND Psychiatry & Neurology Pain Medicine
DX: M16.11 Unilateral primary osteoarthritis, right hip (principal); E11.9 Type 2 diabetes mellitus without complications; M70.61 Trochanteric bursitis, right hip
CPT/HCPCS: 73502; 77002; 82947; J2704

== ENCOUNTER 2024-06-12 08:25 | Day surgery (SDC) | payer MEDICARE ==
[2012-03-20 12:35] VITALS: BP 138/78
[2024-06-12] MEDS ORDERED: BUPIVACAINE 0.5% VIAL IJ ONE (08:26)
[2024-06-12] MEDS ORDERED: propofoL IV ONE (10:31)
--- NOTE | 2024-06-12 12:06 | XRAY ---
Indication: Bilateral L4-S1 MBB. Intraoperative fluoroscopy provided for 10 seconds. Single digital spot image submitted for interpretation demonstrates posterior needle tips projecting over expected left and right L4-S1 nerve roots. Correlate with intraoperative findings/report.
--- NOTE | 2024-06-12 12:56 | XRAY ---
10 seconds of fluoroscopy was used in surgery for a bilateral L4-S1 MBB.
== END 2024-06-12 11:00 | disposition home or self-care (01) ==
LOC: SDC-PAIN 08:25
PROVIDERS: ATTEND Psychiatry & Neurology Pain Medicine
DX: M47.816 Spondylosis without myelopathy or radiculopathy, lumbar region (principal); E11.9 Type 2 diabetes mellitus without complications
CPT/HCPCS: 72020; 77002; 82947; J2704

== ENCOUNTER 2024-07-01 09:07 | Emergency (ER) | payer MEDICARE ==
[2024-07-01 11:30] VITALS: PULSE 60; RESP 16; TEMP 97.7
[2024-07-01 12:15] VITALS: O2SAT 94
[2024-07-01] MEDS ORDERED: VALIUM 10 MG/2 ML SYRINGE IV PRN (12:25)
[2024-07-01 12:54] LABS: ALBUMIN 3.7 g/dL (3.5-5.0); ALKALINE PHOSPHATASE 93 U/L (38-126); ANION GAP 15.2 MEQ/L (5-15); BLOOD UREA NITROGEN 18 mg/dL (9-20); CHLORIDE 107 mmol/L (98-107); Calcium 8.8 mg/dL (8.4-10.2); Carbon Dioxide 20 mmol/L (22-30); EST GLOMERULAR FILTRATION RATE 88.4 ML/MIN; Glucose 170 mg/dL (74-106); Potassium 3.6 mmol/L (3.5-5.1); SGOT/AST 24 U/L (17-59); SGPT/ALT 24 U/L (0-50); SODIUM 139 mmol/L (135-145); Total Protein 6.4 g/dL (6.3-8.2)
[2024-07-01 12:58] LABS: CK-Creatinine Phosphokinase < 20 U/L (55-170)
[2024-07-01 14:36] VITALS: BP 114/72
--- NOTE | 2024-07-01 14:59 | XRAY ---
Indication: Neck pain and difficulty with arms. Sagittal and axial MRI cervical spine performed without contrast using T1 and T2-weighted sequences. Comparison: None Sagittal images demonstrates normal alignment. Multilevel degenerative disc desiccation signal with C5-C7 disc space narrowing. No acute fracture, suspicious bony lesions, or abnormal bone marrow signal. Spinal cord is normal in course and caliber without signal abnormality. Normal appearing craniocervical junction. Axial images through C2-C3 disc level negative for disc herniation, spinal canal, or foraminal stenosis. At C3-C6 levels, there is minimal broad-based disc bulge minimally effacing thecal sac. No focal disc herniation or canal stenosis. Bilateral foraminal stenosis due to uncovertebral spurring. At C6-C7 level, very minimal broad-based disc bulge minimally effaces thecal sac. The C7-T1 level is unremarkable. Impression: Minimal/mild multilevel degenerative disc disease detailed level by level. Negative for disc herniation or spinal canal stenosis.
--- NOTE | 2024-07-01 15:01 | XRAY ---
Indication: Neck pain. Difficulty with arms. Sagittal and axial MRI thoracic spine performed without contrast using T1 and T2 weighted sequences. Comparison: None Sagittal images demonstrates normal thoracic alignment. Multilevel degenerative disc desiccation signal with little to no disc space narrowing. Incidental T6/T9/T11/T12 round vertebral hemangiomas. No acute fracture, suspicious bony lesions, or abnormal bone marrow signal. Spinal cord is normal in course and caliber without signal abnormality. Conus medullaris terminates thoracolumbar junction. Axial images negative for disc herniation or spinal canal stenosis. Impression: 1. Negative for disc herniation/spinal canal stenosis. 2. Incidental multilevel vertebral hemangiomas.
--- NOTE | 2024-07-01 15:15 | ERPHSYRPT ---
- History of Present Illness Time Seen by Provider: 07/01/24 12:30 Source: patient Exam Limitations: clinical condition Patient Subjective Stated Complaint: weakness Triage Nursing Assessment: patient states that he sees dr parikh for pain management for pain in his lower back. he states that he's has a few steroid injections in the back to help with the pain however it is not working and he is now experiencing pain in his upper neck, arms and hands. bilateral hands appear to be swollen. patient isnt able to lift arms above his head. patient states that dr parikh plans to order an MRI however he has not been able to do that just yet. patient states he saw dr bermudez associate in office last week and discuessed this Timing/Duration: today Modifying Factors: Improves With: movement Allergies/Adverse Reactions: bisacodyl [From Dulcolax (bisacodyl)] Allergy (Intermediate, Verified 11/25/23 22:38) Hives doxycycline Allergy (Intermediate, Verified 11/25/23 22:26) sodium phosphate,dibasic [From OsmoPrep] Allergy (Intermediate, Verified 11/25/23 22:26) Hives sodium phosphate,monobasic monohydr [From OsmoPrep] Allergy (Intermediate, Verified 11/25/23 22:26) codeine [Codeine] Adverse Reaction (Severe, Verified 11/25/23 22:26) Vomiting meperidine HCl [From Demerol] Adverse Reaction (Severe, Verified 11/25/23 22:26) Vomiting Home Medications: Tamsulosin HCl 0.4 mg PO HS 03/24/18 [History] glipiZIDE [Glipizide ER] 10 mg PO DAILY 03/24/18 [History] Cyanocobalamin (Vitamin B-12) [Vitamin B-12] 1,000 mcg PO DAILY 09/18/19 [History] Ezetimibe 10 mg [Zetia 10 MG] 10 mg PO HS 09/18/19 [History] Losartan Potassium [Cozaar] 50 mg PO DAILY 09/18/19 [History] Losartan Potassium 50 mg [Cozaar 50 MG] 25 mg PO HS 11/25/23 [History] Omeprazole 40 mg PO DAILY 11/25/23 [History] Hx Tetanus, Diphtheria Vaccination/Date Given: No (unsure) Hx Influenza Vaccination/Date Given: No Hx Pneumococcal Vaccination/Date Given: Yes Travel Risk - International Travel Have you traveled outside of the country in past 3 weeks: No - Emerging Infectious Disease Are you exhibiting symptoms associated with any current EIDs: No - Review of Systems Constitutional: No Symptoms Eyes: No Symptoms Ears, Nose, & Throat: No Symptoms Respiratory: No Symptoms Cardiac: No Symptoms Abdominal/Gastrointestinal: No Symptoms Genitourinary Symptoms: No Symptoms Musculoskeletal: No Symptoms Skin: No Symptoms Neurological: No Symptoms - Past Medical History Pertinent Past Medical History: Yes Neurological History: No Pertinent History ENT History: No Pertinent History Cardiac History: Hypertension Respiratory History: No Pertinent History Endocrine Medical History: Diabetes Type II Musculoskeletal History: Osteoarthritis GI Medical History: Esophageal Disorder History: No Pertinent History Psycho-Social History: No Pertinent History Male Reproductive Disorders: Prostate Problems Other Medical History: hx blood in stool - Past Surgical History Past Surgical History: Yes Neuro Surgical History: No Pertinent History Cardiac: No Pertinent History Respiratory: No Pertinent History Gastrointestinal: Appendectomy, Cholecystectomy Genitourinary: No Pertinent History Musculoskeletal: No Pertinent History Male Surgical History: No Pertinent History Other Surgical History: t&a - Social History Smoking Status: Former smoker Drug Use: none - Social Determinants of Health Will the patient participate in the screening: Declined to provide - Nursing Vital Signs Nursing Vital Signs: Initial Vital Signs Temperature 97.7 F 07/01/24 11:17 Pulse Rate 60 07/01/24 11:17 Respiratory Rate 16 07/01/24 11:17 Blood Pressure 112/64 07/01/24 11:17 O2 Sat by Pulse Oximetry 96 07/01/24 11:17 Pain Scale Pain Intensity 10 - Physical Exam General Appearance: no apparent distress Eye Exam: PERRL/EOMI Ears, Nose, Throat Exam: normal ENT inspection Neck Exam: normal inspection Respiratory Exam: normal breath sounds Cardiovascular Exam: regular rate/rhythm Gastrointestinal/Abdomen Exam: soft, normal bowel sounds (patient has normal passive ROM however has decreased active ROM no motor or sensory deficits distally) SpO2: 94 Ordered Tests: Active Orders 24 hr Category Date Time Status SALINE LOCK [Discontinue Saline Lock] ROUTINE Care 07/01/24 12:25 Active MRI C-SPINE W/O CONTRAST [MRI] Stat Exams 07/01/24 12:23 Completed MRI T-SPINE WITHOUT CONTRAST [MRI] Stat Exams 07/01/24 12:23 Completed CK (IN-HOUSE) [CK-Creatinine Phosphokinase] Stat Lab 07/01/24 12:39 Completed CMP Stat Lab 07/01/24 12:39 Completed MAGNESIUM Stat Lab 07/01/24 12:39 Completed Medication Summary Generic Name Dose Route Start Last Admin Trade Name Hellen PRN Reason Stop Dose Admin Diazepam 5 mg 07/01/24 12:25 Diazepam 10 Mg/2 Ml Disp.Syringe IV 07/31/24 12:24 PRN PRN SEIZURES Lab/Rad Data: Laboratory Result Diagrams 07/01/24 12:39 Laboratory Results 07/01/24 Range/Units 12:39 Sodium 139 (135-145) mmol/L Potassium 3.6 (3.5-5.1) mmol/L Chloride 107 (98-107) mmol/L Carbon Dioxide 20 L (22-30) mmol/L Anion Gap 15.2 H (5-15) MEQ/L BUN 18 (9-20) mg/dL Creatinine 0.80 (0.66-1.25) mg/dL Estimated GFR 88.4 ML/MIN Glucose 170 H (74-106) mg/dL Calcium 8.8 (8.4-10.2) mg/dL Magnesium 2.0 (1.6-2.3) mg/dL Total Bilirubin 0.60 (0.2-1.3) mg/dL AST 24 (17-59) U/L ALT 24 (0-50) U/L Alkaline Phosphatase 93 (38-126) U/L Creatine Kinase < 20 L (55-170) U/L Serum Total Protein 6.4 (6.3-8.2) g/dL Albumin 3.7 (3.5-5.0) g/dL - Progress Progress Note: Patient here for evaluation of weakness to the upper extremities he states he has been seen for this 4 weeks ago by his specialist and was supposed to have an MRI scheduled however his weakness is worse so he decided to come in for evaluation he would like an MRI. He denies any change in his symptoms over the past 4 to 8 weeks. He has no change in medications. He states that he cannot last picker certain things and cannot lift up his arms. MRI of the C-spine and T-spine were obtained this revealed 07/01/24 15:14 Impression: Minimal/mild multilevel degenerative disc disease detailed level by level. Negative for disc herniation or spinal canal stenosis. Impression: 1. Negative for disc herniation/spinal canal stenosis. 2. Incidental multilevel vertebral hemangiomas. Patient was updated with the results and informed of the need for follow-up with his primary care provider he is to take his medications as prescribed 07/01/24 15:15 07/01/24 15:16 Medical Desision Making - Discussion of managment Agreed on:: need for follow-up - Departure Departure Disposition: Home Clinical Impression: Weakness, Muscle strain, upper arm Condition: Good Critical Care Time: No Referrals: CHRISTINE KABA MD [Primary Care Provider] - Follow up/PCP as directed
== END 2024-07-01 15:30 | disposition left against medical advice (07) ==
LOC: ED 09:07
DX: R53.1 Weakness (principal); S46.919A Strain of unspecified muscle, fascia and tendon at shoulder and upper arm level, unspecified arm, initial encounter; I10 Essential (primary) hypertension; E11.9 Type 2 diabetes mellitus without complications; Z79.84 Long term (current) use of oral hypoglycemic drugs; Z79.899 Other long term (current) drug therapy
CPT/HCPCS: 36415; 72141; 72146; 80053; 82550; 83735; 99282; 99284